=== PATIENT | male | born 1980 | race Caucasian/White ===

== ENCOUNTER 2018-04-04 10:34 | Observation (INO) | payer SELFPAY ==
[2018-04-04] MEDS ORDERED: Morphine 4 MG/ML VIAL ONE (11:14)
[2018-04-04] MEDS ORDERED: Ondansetron ODT 4 MG TAB PO PRN (12:04)
[2018-04-04] MEDS ORDERED: Dextrose 5% in Water 1,000 ML IV PRN (12:04)
[2018-04-04] MEDS ORDERED: traMADol HCl 50 MG TAB PO PRN ×2 (12:04)
[2018-04-04] MEDS ORDERED: Ondansetron HCl/PF 4 MG/2 ML Vial IVP PRN (12:04)
[2018-04-04] MEDS ORDERED: Ibuprofen 800 MG TAB PO PRN (12:04)
[2018-04-04] MEDS ORDERED: hydrALAZINE 20 MG/ML VIAL SLOW IVP PRN (12:04)
[2018-04-04] MEDS ORDERED: Cyclobenzaprine 10 MG TAB PO PRN (12:04)
[2018-04-04] MEDS ORDERED: Dextrose 50% Abboject 50 ML SYRINGE SLOW IVP PRN (12:04)
[2018-04-04] MEDS ORDERED: Promethazine HCl 25 MG/ML VIAL IM PRN ×2 (12:04)
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
[2018-04-04] MEDS: Acetaminophen 500 MG TAB PO SCH ×2 (18:17→23:44)
[2018-04-05 05:16] LABS: #Eosinphils 0.1 thou/uL (0.0-0.7); #Lymphocytes 2.3 thou/uL (1.20-3.40); #Neutrophils 6.7 thou/uL (1.40-6.50); %Basophils 0.3 % (0.0-1.0); %Monocytes 9.5 % (0.0-10.0); %Neutrophils 66.2 % (42.0-75.0); Hemoglobin 15.3 g/dL (14.0-18.0); Mean Corpuscular HGB CONC 34.2 g/dL (32.0-36.0); Mean Corpuscular Hemoglobin 31.5 pg (27.0-31.0); Mean Corpuscular Volume 92.1 fl (80.0-94.0); Mean Platelet Volume 7.6 fL (7.4-10.4); Platelet Count 215 thou/uL (130-400); RBC Distribution Width 11.3 % (11.5-14.5); Red Blood Cell (RBC) Count 4.87 mill/uL (4.70-6.10); White Blood Cell (WBC) Count 10.1 thou/uL (4.8-10.8)
[2018-04-05] MEDS: Acetaminophen 500 MG TAB PO SCH ×2 (06:07→11:21)
--- NOTE | 2018-04-05 10:41 | RAD ---
PORTABLE CHEST: Date: 04/05/18 HISTORY: Follow-up of pneumomediastinum. COMPARISON: CT examination of 04/04/18. FINDINGS: On the previous CT examination, there is some air which was seen along the anterior aspect of the hea rt, which was questioned as pneumomediastinum versus pneumothorax. On this upright film, I do not see any definite pneumothorax or definite signs of a pneumomediastinum. IMPRESSION: No definite signs of any left-sided pneumothorax or definite pneumomediastinum. POS: [facility]
[2018-04-05 12:24] VITALS: BP 125/79; TEMP 98
== END 2018-04-05 15:21 | disposition home or self-care (01) ==
LOC: ERS 10:34 → SURG B 13:25
PROVIDERS: ADMIT Surgery; ATTEND Surgery
DX: S42.112A Displaced fracture of body of scapula, left shoulder, initial encounter for closed fracture (principal); V86.59XA Driver of other special all-terrain or other off-road motor vehicle injured in nontraffic accident, initial encounter
CPT/HCPCS: 36415; 71045; 85025; 96374; G0378; G0390; J2270; Q0162